=== PATIENT | male | born 1945 | race Native Hawaiian/Other Pacific Islander ===

== ENCOUNTER 2020-02-24 22:58 | Emergency (ER) | payer OTHER ==
[~2020-02-24] VITALS: Ht 170.2 cm; Wt 112.9 kg
[2020-02-25 00:11] LABS: PLATELET COUNT 330 K/uL (142-355)
[2020-02-25 00:14] LABS: POTASSIUM 3.6 mmol/L (3.6-5.2)
[2020-02-25 00:45] VITALS: BP 136/71; TEMP 98.8
[2020-02-25] MEDS ORDERED: LYRICA150 MG PO (00:58)
[2020-02-25] MEDS ORDERED: UNITHROID300 MCG PO (00:59)
[2020-02-25] MEDS ORDERED: ZYRTEC ALLGY10 MG PO (01:00)
[2020-02-25] MEDS ORDERED: AMLODIPINE BESYLATE PO (01:00)
[2020-02-25] MEDS ORDERED: POT CHLORIDE10 ME1 PO (01:02)
[2020-02-25] MEDS ORDERED: VITAMIN D31000 UNIT PO (01:04)
[2020-02-25] MEDS ORDERED: DULO60CA2 PO (01:05)
[2020-02-25] MEDS ORDERED: DILTIAZEM HCL240 M2 PO (01:05)
[2020-02-25] MEDS ORDERED: FLONASE AL50 MCG/ACT INH (01:06)
[2020-02-25] MEDS ORDERED: FOLIC ACID800 MC1 PO (01:08)
[2020-02-25] MEDS ORDERED: FURO40TA93 PO (01:09)
[2020-02-25] MEDS ORDERED: IRON325 MG PO (01:10)
[2020-02-25] MEDS ORDERED: [UNRECOGNIZED DRUG - OTHER] PO (01:11)
[2020-02-25] MEDS ORDERED: MUCINEX600 MG PO (01:12)
[2020-02-25] MEDS ORDERED: OMEP40CA PO (01:12)
[2020-02-25] MEDS ORDERED: METF500T PO (01:13)
[2020-02-25] MEDS ORDERED: TRAZ50TA36 PO (01:13)
[2020-02-25] MEDS ORDERED: LATA0.00 OPTH (01:15)
[2020-02-25] MEDS ORDERED: TYLENOL325 MG PO (01:17)
[2020-02-25] MEDS ORDERED: TRIDERM0.1 % EX (01:19)
[2020-02-25] MEDS ORDERED: NITROSTAT0.4 MG SL (01:20)
[2020-02-25] MEDS ORDERED: IPRATROPIUM/ INH (01:21)
[2020-02-25] MEDS ORDERED: OXYGEN NAS (01:23)
[2020-02-25] MEDS ORDERED: LEVEMIR FL100 UNIT/M SC (01:24)
[2020-02-25] MEDS ORDERED: NOVOLOG FL100 UNIT/M SC (01:27)
== END 2020-02-25 00:45 | disposition other institution (70) ==
LOC: EDBD 22:58 → ED 22:58
PROVIDERS: Emergency Medicine
DX: F28 Other psychotic disorder not due to a substance or known physiological condition (principal); Z03.818 Encounter for observation for suspected exposure to other biological agents ruled out; Z04.6 Encounter for general psychiatric examination, requested by authority
CPT/HCPCS: 36415; 80053; 85027; 87635; 93005; 99283; U0002

== ENCOUNTER 2022-03-30 03:02 | Emergency (ER) | payer OTHER ==
[~2022-03-30] VITALS: Ht 175.3 cm; Wt 112.9 kg
[~2022-03-30 03:02] MED LIST: AMLODIPINE BESYLATE PO; DILTIAZEM HCL240 M2 PO; DIVA250T PO; DIVALPROEX500 MG PO; DULO30CA PO; DULO60CA2 PO; FLONASE AL50 MCG/ACT INH; FOLIC ACID800 MC1 PO; FURO40TA93 PO; IPRATROPIUM/ INH; IRON325 MG PO; LATA0.00 OPTH; LEVEMIR FL100 UNIT/M SC; LYRICA150 MG PO; METF500T PO; MUCINEX600 MG PO; NITROSTAT0.4 MG SL; NOVOLOG FL100 UNIT/M SC; OMEP40CA PO; OXYGEN NAS; POT CHLORIDE10 ME1 PO; TRAZ50TA36 PO; TRIDERM0.1 % EX; TYLENOL325 MG PO; UNITHROID300 MCG PO; VITAMIN D31000 UNIT PO; ZYRTEC ALLGY10 MG PO; [UNRECOGNIZED DRUG - OTHER] PO
[2022-03-30 03:47] LABS: PLATELET COUNT 262 K/uL (142-355); POTASSIUM 3.5 mmol/L (3.6-5.2)
[2022-03-30 04:41] VITALS: BP 142/76; TEMP 98.2
[2022-03-30] MEDS ORDERED: COPAXONE40 MG/ML SC (07:15)
[2022-03-30] MEDS ORDERED: DECUBI-VITE PO (07:17)
[2022-03-30] MEDS ORDERED: EUTHYROX200 MCG PO (07:21)
[2022-03-30] MEDS ORDERED: DULO30CA PO (07:23)
[2022-03-30] MEDS ORDERED: LYRICA75 MG PO (07:24)
[2022-03-30] MEDS ORDERED: DIGOX125 MCG PO (07:25)
[2022-03-30] MEDS ORDERED: CARTIA XT120 MG PO (07:28)
[2022-03-30] MEDS ORDERED: CORRECTOL100 MG PO (07:28)
[2022-03-30] MEDS ORDERED: TOLT2CAP PO (07:29)
[2022-03-30] MEDS ORDERED: INCRUSE EL62.5 MCG/I INH (07:33)
[2022-03-30] MEDS ORDERED: MAG CITRATE PO (07:34)
[2022-03-30] MEDS ORDERED: TYLENOL325 MG PO (07:34)
[2022-03-30] MEDS ORDERED: NOVOLIN R100 UNIT/1 SC (09:52)
[2022-04-02] MEDS ORDERED: CARDIZEM CD 120 MG PO (10:25)
[2022-04-02] MEDS ORDERED: DIGO0.1230 PO (10:25)
[2022-04-02] MEDS ORDERED: ACET-206 PO (10:25)
[2022-04-02] MEDS ORDERED: NORVASC 5MG TAB PO (10:25)
[2022-04-02] MEDS ORDERED: FURO40TA93 PO (10:26)
[2022-04-02] MEDS ORDERED: DULO30CA PO (10:26)
[2022-04-02] MEDS ORDERED: INSUINJ20 SC (10:26)
[2022-04-02] MEDS ORDERED: DOCU100C10 PO (10:26)
[2022-04-02] MEDS ORDERED: LEVO0.1T6 PO (10:27)
[2022-04-02] MEDS ORDERED: MAGNSOL PO (10:28)
[2022-04-02] MEDS ORDERED: OLAN2.5T2 PO (10:28)
[2022-04-02] MEDS ORDERED: BLOOMIS59 SC (10:29)
[2022-04-02] MEDS ORDERED: LYRICA75 MG PO (10:29)
[2022-04-02] MEDS ORDERED: TIOTCAP2 INH (10:29)
[2022-04-02] MEDS ORDERED: TRAZ50TA36 PO (10:30)
[2022-04-02] MEDS ORDERED: TRIA0.1C19 TOP (10:30)
== END 2022-03-30 04:41 | disposition still patient (30) ==
LOC: ED 03:02
PROVIDERS: Emergency Medicine
DX: R46.89 Other symptoms and signs involving appearance and behavior (principal); F32.89 Other specified depressive episodes; Z11.52 Encounter for screening for COVID-19; Z04.6 Encounter for general psychiatric examination, requested by authority
CPT/HCPCS: 36415; 80053; 85027; 87635; 93005; 99283; U0003